=== PATIENT | female | born 1955 | race Two or more races ===

== ENCOUNTER → 2024-12-03 | Outpatient (CLI) | payer OTHER ==
--- NOTE | 2024-12-03 11:42 | HMCIMG ---
CT CORONARY CALCIFICATION SCORING: Anatomic images were reviewed. The calcium score is being generated and reported separately. This report is for the visualized anatomy only. Visualized portions of the lungs are clear. Hilar and mediastinal structures appear normal. Osseous structures are unremarkable. Impression: 1. Negative noncardiac anatomic findings. 2. The calcium score is 947.6 consistent with a large degree of calcified plaque. This is 99th percentile for a patient this age. CT was performed with one or more following dose reduction techniques: automated exposure control, adjustment of the mA and kv according to patient's size, or use of a iterative reconstruction technique.2
== END | disposition home or self-care (01) ==
LOC: RAH 07:59
PROVIDERS: ATTEND Internal Medicine Cardiovascular Disease
DX: Z13.6 Encounter for screening for cardiovascular disorders (principal)
CPT/HCPCS: 75571

== ENCOUNTER → 2024-12-05 | Outpatient (CLI) | payer MEDICARE ==
--- NOTE | 2024-12-07 11:06 | HMCSR ---
APPROVED REPORT Laterality: Bilateral Indications r09.89 Doppler Spectral Velocity Analysis PSV / EDVPSV / EDV ECA (R) 79 / cm/sECA (L) 95 / cm/s dICA (R) 76 / 16 cm/sdICA (L) 71 / 11 cm/s Sandra (R) 72 / 20 cm/smICA (L) 79 / 20 cm/s pICA (R) 72 / 15 cm/spICA (L) 60 / 9 cm/s dCCA (R) 62 / 15 cm/sdCCA (L) 71 / 18 cm/s mCCA (R) 58 / 12 cm/smCCA (L) 72 / 12 cm/s pCCA (R) 76 / 13 cm/spCCA (L) 62 / 17 cm/s Vert (R) 39 / cm/sVert (L) 62 / cm/s Subl. (R) 245 / cm/sSubl. (L) 173 / cm/s ICA/CCA 1.00ICA/CCA 1.10 Technologist Impression Minimal to mild plaque noted in the bilateral carotids, without hemodynamic significance. Bilateral vertebral arteries appear antegrade. AVF noted on right upper extremity. Conclusion Minimal to mild plaque noted in the bilateral carotids, without hemodynamic significance. Bilateral vertebral arteries appear antegrade. AVF noted on right upper extremity. Conclusion Minimal to mild plaque noted in the bilateral carotids, without hemodynamic significance. Bilateral vertebral arteries appear antegrade. AVF noted on right upper extremity.
--- NOTE | 2024-12-07 11:10 | HMCSR ---
APPROVED REPORT EXAM: Two-dimensional and M-mode echocardiogram with Doppler and color Doppler. INDICATION ICD: R01.1 Cardiac murmur, unspecified 2D Dimensions RVDd3.1 cmLVEF(%)56.1 (>50%)LVED Vol(simp.)89.0 mL IVSd1.1 (0.7-1.1cm)FS(%)29 %LVES Vol(simp.)40.0 mL LVDd4.7 (3.8-5.6cm)Ao Root(2D)2.8 (2.0-3.7cm)LVEF(%, simp.)55 % PWd1.1 (0.7-1.1cm)LVOT diam2.0 (1.8-2.4cm)LA ESV INDEX (BP)37.04 mL/m2 LVDs3.3 (2.5-4.0cm)IVC diam1.6 cm Aortic Valve AoV Vmax1.5 m/Josiah Peak GR9.1 mmHgLVOT Vmax0.8 m/s AoV VTI0.4 mAo Mean GR5.0 mmHgLVOT VTI0.21 m NEHA (VMAX)1.8 cm2AVA (VTI) 1.8 cm2 Mitral Valve MV E Shhl991.2 cm/sDECEL [id number] msMV Peak GR8 mmHg MV A Vmax85.6 cm/sP 1/2 T74 msMV Mean GR3 mmHg E/A ratio1.6MVA (PHT)3.0 cm2MVA (VTI)1.4 cm2 TDI E/E' Btbkci88.6E/E' Sagvqve28.7 Pulmonary Valve PV Vmax1.0 m/sPV VTI0.25 mPV Mean GR3 mmHg PV Peak GR4.3 mmHg Tricuspid Valve TR Vmax2.1 m/sRAP (EST) 3 xsLmLLTM63.3 mmHg TR Peak GR18.3 mmHg Left Ventricle Left ventricular cavity size is normal. There is normal LV segmental wall motion. There is mild nadira ntric left ventricular hypertrophy. LVEF is 55-60%. No left ventricle thrombus noted on this study. G rade 2 diastolic dysfunction. Right Ventricle The right ventricle is normal size. The right ventricular systolic function is normal. Atria The left atrium is mildly dilated. The right atrium size is normal. Aortic Valve Aortic valve is trileaflet. Aortic valve leaflets are sclerotic but open well. Trace aortic regurgita tion. Calculated aortic valve area is 1.8 cm2 with maximum pressure gradient of 9.1 mmHg and mean pre ssure gradient of 5 mmHg. Mitral Valve Mitral valve leaflets are mildly sclerotic but open well. Mild mitral annular calcification present. Mitral regurgitation is trace. Calculated mitral valve area is 1.4 cm2 with maximum pressure gradient of 8.2 mmHg and mean pressure gradient of 2.8 mmHg. Tricuspid Valve The tricuspid valve leaflets appear normal. There is trace tricuspid regurgitation. Pulmonic Valve The pulmonic valve leaflets are thin and pliable; valve motion is normal. Great Vessels The aortic root is normal in size. The IVC is normal in size and collapses >50% with inspiration. Pericardium No pericardial effusion. Conclusion Left ventricular cavity size is normal. There is mild concentric left ventricular hypertrophy. LVEF is 55-60%. Grade 2 diastolic dysfunction. The left atrium is mildly dilated. Aortic valve is trileaflet. Aortic valve leaflets are sclerotic but open well. Trace aortic regurgitation. Calculated aortic valve area is 1.8 cm2 with maximum pressure gradient of 9.1 mmHg and mean pressure gradient of 5 mmHg. Mitral valve leaflets are mildly sclerotic but open well. Mild mitral annular calcification present. Mitral regurgitation is trace. Calculated mitral valve area is 1.4 cm2 with maximum pressure gradient of 8.2 mmHg and mean pressure gradient of 2.8 mmHg. There is trace tricuspid regurgitation. The aortic root is normal in size. The IVC is normal in size and collapses >50% with inspiration. No pericardial effusion.
== END | disposition home or self-care (01) ==
LOC: SHCH 13:15 → EDUNIT# 13:30
PROVIDERS: ATTEND Internal Medicine Cardiovascular Disease
DX: I08.0 Rheumatic disorders of both mitral and aortic valves (principal); R09.89 Other specified symptoms and signs involving the circulatory and respiratory systems; R01.1 Cardiac murmur, unspecified
CPT/HCPCS: 93306; 93880

== ENCOUNTER → 2024-12-10 | Outpatient (CLI) | payer MEDICARE ==
[2024-12-10] MEDS: REGADENOSON 0.4 MG/5 ML PF SYG IVP ONE (15:32)
--- NOTE | 2024-12-11 09:37 | HMCSR ---
APPROVED REPORT Height: 5 ft 3in Weight: 137 lbs TEST INDICATIONS Hypertension/HDD The imaging protocol used to acquire images was Rest Tc-99m/stress Tc-99m 1 day Consent: The procedure was explained and understood by the patient. Informerd consent was witnessed Kala Lopez RN First, low dose rest was performed then high dose stress. RESTING DATA: The resting ekg shows: NSR Rest SPECT myocardial perfusion imaging was performed in supine position 63 minutes following the int ravenous injection of 10.9 mCi of Tc-99 Sestamibi. Time of rest injection: 08:26: Date: 12/10/2024 Time of rest imagin:29: Date: 12/10/2024 PHARMACOLOGIC STRESS: Pharmacologic stress test was performed by injecting regadenoson 0.4 mg IV push followed by the intra venous injection of 31.3 mCi of Tc-99 Sestamibi. Time of stress injection: 10:00: Date: 12/10/2024 Time of stress imagin:12: Date: 12/10/2024 Heart Rate at time of stress injection: 60 bpm. Gated Stress SPECT was performed 72 minutes after stress injection. The images were gated to evaluate regional wall motion and calculate left ventricular ejection fracti on. STRESS DETAILS Reason for Termination: Infusion complete Stress Symptoms: Dyspnea Max HR Achieved: 71 bpm % of APMHR Achieved: 47 Max Blood Pressure: 209/78 mmHg Stress ECG: NSR LEFT VENTRICLE Size: The left ventricular size is mildly dilated. Systolic Function:The left ventricular systolic function is normal. Wall Motion: No regional wall motion abnormalities noted. The left ventricular ejection fraction was calculated to be 66%.TID = . LV PERFUSION Fixed rashawn-apical defect. No reversible defects. Conclusion The left ventricular size is mildly dilated. The left ventricular systolic function is normal. No regional wall motion abnormalities noted. Fixed rashawn-apical defect. No reversible defects. The left ventricular ejection fraction was calculated to be 66%.
== END | disposition home or self-care (01) ==
LOC: SHCH 07:53 → EDUNIT# 08:10
PROVIDERS: ATTEND Internal Medicine Cardiovascular Disease
DX: N13.0 Hydronephrosis with ureteropelvic junction obstruction (principal); N18.6 End stage renal disease; R09.89 Other specified symptoms and signs involving the circulatory and respiratory systems; R06.00 Dyspnea, unspecified
CPT/HCPCS: 78452; 93017; J2785; A9500 ×2